=== PATIENT | male | born 1975 | race Caucasian/White ===

== ENCOUNTER 2019-12-14 17:50 | Emergency (ER) | payer MEDICAID ==
[~2019-12-14] VITALS: Ht 180.3 cm; Wt 88.6 kg
[2019-12-14 18:17] VITALS: BP 151/101
[2019-12-14] MEDS ORDERED: HYDROcodone/acetaminophen 5mg/325mg tablet PO ONE (19:35)
== END 2019-12-14 20:02 | disposition home or self-care (01) ==
LOC: ER 17:50
DX: S89.92XA Unspecified injury of left lower leg, initial encounter (principal); F12.90 Cannabis use, unspecified, uncomplicated; X50.1XXA Overexertion from prolonged static or awkward postures, initial encounter; Y93.89 Activity, other specified; Y92.89 Other specified places as the place of occurrence of the external cause; Y99.9 Unspecified external cause status
CPT/HCPCS: 29505; 73564; 99284